=== PATIENT | female | born 2005 | race African-American/Black ===

== ENCOUNTER 2023-05-10 22:20 | Emergency (ER) | payer BC, SELFPAY ==
[2023-05-10] VITALS (9 sets, daily range): BP systolic 130–131; BP diastolic 82–93; PULSE 103–127; RESP 13–28; TEMP 36.7–36.9; O2SAT 100
--- NOTE | 2023-05-10 22:42 | ECG_ITS ---
Measurements Intervals [place] Rate: 127 P: 48 IN: 154 QRS: 19 QRSD: 76 T: 6 QT: 295 QTc: 430 Interpretive Statements SINUS TACHYCARDIA OTHERWISE NORMAL ELECTROCARDIOGRAM NO PREVIOUS ECG AVAILABLE FOR COMPARISON Electronically Signed On 05-11-2023 7:38:58 CONCRETE CURER by Dg Lara M.D.
--- NOTE | 2023-05-10 22:46 | ED.OVERDOSE ---
HPI - Overdose General Chief Complaint: Overdose <Mirna Herrera PA-C - Last Filed: 05/11/23 02:55> Stated Complaint: overdose on melatonin, and cold medicine <Mirna Herrera PA-C - Last Filed: 05/11/23 02:55> Time Seen by Provider: 05/10/23 22:31 <Mirna Herrera PA-C - Last Filed: 05/11/23 02:55> History of Present Illness HPI Narrative: 17-year-old female presents with her aunt and grandmother from home after a intentional overdose. The patient is anxious and crying on exam but provided the following history. She states that she tried to kill herself by taking sleep medications within an hour of arrival. Pt admits to taking an entire bottle of melatonin gummies (30 gummies, 6mg of melatonin each) and drank 90ccs of ZzzQuil nighttime sleep (50mg of Benadryl per 30mls.) Medications bottles present at bedside and reviewed. Pt endorses feeling sleepy and states that ?I just want Baldo to be here . Baldo is her boyfriend. Pt states no one wants her and Baldo to be together. She reports attempted suicide multiple times including an intentional Tylenol overdose within the past year. She denies visual or auditory hallucinations, HI. She denies alcohol or drug use. Denies chest pain, dyspnea, vision changes, focal numbness or weakness, n/v/d, abdominal pain, urinary complaints. Patient's aunt provides the following history. The patient lives at home with her and the patient's grandmother. The patient's boyfriend, Baldo, showed up to the house saying Marcos texted him saying she was going to kill herself. The aunt then went and found the patient getting out of the shower, dressed the patient and brought her to the ED. The grandmother said the patient left to get the cough medications at 9:30pm tonight, therefore took the medications some point after. Family endorses a formal dx of ADD, no other psychiatric diagnoses. She has never been admitted for inpatient psychiatry and has never been evacuated by a psychiatric despite reported multiple suicide attempts. <Mirna Herrera PA-C - Last Filed: 05/11/23 02:55> Related Data Allergies/Adverse Reactions: Allergies Allergy/AdvReac Type Severity Reaction Status Date / Time No Known Allergies Allergy Mild Verified 05/10/23 22:31 <Mirna Herrera PA-C - Last Filed: 05/11/23 02:55> Review of Systems Review of Systems: CONSTITUTIONAL: Denies fever, chills, or sweats. EYES: Denies visual changes, redness, or discharge. ENT: Denies rhinorrhea, congestion, sore throat, or otalgia. CARDIOVASCULAR: Denies chest pain, palpitations, or edema. RESPIRATORY: Denies cough or dyspnea. GASTROINTESTINAL: Denies abdominal pain, nausea, vomiting, or diarrhea. GENITOURINARY: Denies dysuria or hematuria. SKIN: Denies rash or itching. MUSCULOSKELETAL: Denies back pain, joint pain, or myalgia. NEUROLOGIC: Denies headache, numbness, or weakness. PSYCHIATRIC: See HPI <Mirna Herrera PA-C - Last Filed: 05/11/23 02:55> [facility] Social History Social History: Social History Second hand tobacco smoke exposure: No Substance use type: former substance user <Mirna Herrera PA-C - Last Filed: 05/11/23 02:55> Exam Narrative: GENERAL: Patient anxious, tachypneic and tearful. Patient is protecting her airway in speaking in hushed tones HEAD: Normocephalic, atraumatic. EYES: PERRLA and EOMI. Mydriasis bilaterally ENT: Nares clear, no rhinorrhea or epistaxis. Mucous membranes moist. NECK: Supple. CHEST: Clear to auscultation. No respiratory distress. HEART: Regular rate and rhythm. No murmur heard. Normal peripheral pulses. ABDOMEN: Soft, nontender, nondistended, normal active bowel sounds. EXTREMITIES: Normal range of motion. No edema. SKIN: Warm, dry, no rash. NEURO: No focal deficits. Alert and oriented x3 PSYCH: Tearful, depressed, anxious. Active SI. No HI. No reported hallucinations. Well kept. <
[2023-05-10 22:57] LABS: Basophils Percent Auto 0.3 % (0.2-1.2); Eosinophils Absolute Auto 0.3 K/mm3 (0-0.3); Eosinophils Percent Auto 3.6 % (0-4.4); Hematocrit 40.8 % (37.0-47.0); Hemoglobin 13.5 g/dL (12.0-15.0); Immature Granulocyte Absolute 0.02 K/mm3 (0.00-0.031); Immature Granulocyte Percent A 0.2 % (0-0.5); Lymphocytes Absolute Auto 2.85 K/mm3 (0.9-3.2); Lymphocytes Percent Auto 32.9 % (18.3-44.2); Mean Corpuscular HGB Conc 33.1 g/dl (32-36); Mean Corpuscular Hemoglobin 29.3 pg (26-34); Mean Corpuscular Volume 88.7 fl (80-100); Mean Platelet Volume 8.2 fl (7.4-10.4); Monocytes Absolute Auto 0.7 K/mm3 (0.1-0.6); Monocytes Percent Auto 8.2 % (2.6-8.5); Neutrophils Absolute Auto 4.7 K/mm3 (1.3-6.7); Neutrophils Percent Auto 54.8 % (45.5-73.1); Platelet Count Result 346 k/mm3 (150-375); Red Cell Distribution Width 12.1 % (11.5-14.5); White Blood Count 8.7 K/mm3 (4.5-10.0)
--- NOTE | 2023-05-10 23:04 | PC.NURSE ---
This RN spoke with Shanel at poison control to consult about pt intentional overdose. Shanel at poison control stated that she would recommend ordering a salicylate and tylenol level along with a UDS and UA. Shanel also stated the main symptoms pt could experience would be nausea, vomiting, diarrhea, drowsiness, ataxia, and/ or agitation. Shanel stated that she was subtoxic. EDp ITZEL Kaur [facility] this RN.
[2023-05-10 23:09] LABS: Alanine Aminotransferase 13 U/L (6-35); Albumin Level 4.7 g/dL (3.7-5.6); Alkaline Phosphatase 89 U/L (45-116); Anion Gap 8 mmol/L (8-16); Aspartate Amino Transferase 22 U/L (14-36); Bilirubin,Total 0.5 mg/dL (0.2-1.3); Blood Urea Nitrogen 12 mg/dL (8-21); Calcium 9.4 mg/dL (8.9-10.7); Carbon Dioxide 25 mmol/L (22-30); Chloride 107 mmol/L (98-107); Estimated CRCL calculation 109 ml/min; Estimated Glomerular Filt Rate > 60; Glucose 106 mg/dL (65-110); Potassium 4.1 mmol/L (3.4-5.0); Sodium 140 mmol/L (134-143)
[2023-05-10 23:10] LABS: Acetaminophen < 10 ug/mL (10-30); Ethanol < 10 mg/dL (<10); Salicylate < 1.0 mg/dL (2-20)
[2023-05-10 23:18] LABS: Appearance Urine Clear (Clear); Bilirubin Urine Negative (Negative); Blood Urine Negative (Negative); Color Urine Yellow (Yellow); Glucose Urine UA Negative (Negative); Ketones Urine Trace mg/dL (Negative); Leukocyte Esterase Ur Negative LEU/UL (Negative); Nitrate Urine Negative (Negative); Protein Urine Negative (Negative); Urobilinogen Urine 0.2 mg/dL (<2.0); pH Urine 5.5 (5.0-9.0)
[2023-05-10 23:33] LABS: Amphetamine Screen Urine Negative (Negative); Barbiturate Screen Urine Negative (Negative); Benzodiazepines Screen Urine Negative (Negative); Cannabinoid Screen Urine Negative (Negative); Cocaine Screen Urine Negative (Negative); Methadone Screen Urine Negative (Negative); Opiate Screen Urine Negative (Negative); Phencyclidine Screen Urine Negative (Negative)
[2023-05-10] MEDS: SODIUM CHLORIDE 0.9% IV 1,000 ML 999 ML IV CONT (23:43)
[2023-05-10 23:49] LABS: Specific Grav Ur 1.037 (1.001-1.035)
[2023-05-10 23:50] LABS: Add Urine Microscopic? NO; SARS-CoV-2 RNA PCR Negative (Negative)
[2023-05-11] VITALS (47 sets, daily range): BP systolic 97–130; BP diastolic 66–89; PULSE 71–117; RESP 13–21; TEMP 36.6; O2SAT 97–100
--- NOTE | 2023-05-11 01:04 | PC.NURSE ---
THis RN spoke with Shanel at poison control to give the pharmacist an update on pt condition.
--- NOTE | 2023-05-11 01:13 | PC.NURSE ---
This RN spoke with [facility] for pt to be evaluated. [facility] denied evaluation for pt. This RN contacted [facility].
--- NOTE | 2023-05-11 04:31 | PC.NURSE ---
This RN has called the CRISIS hotline every 15 minutes since 314 and the calls continue to go straight to voicemail. Multiple messages left. Will continue to call.
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
--- NOTE | 2023-05-11 07:54 | PC.NURSE ---
Pt [place] Reassessment no risk, due to recent suicide attempt and elopement risk sitter remains at bedside
== END 2023-05-11 16:07 ==
PROVIDERS: Physician Assistant; Emergency Provider Emergency Medicine
DX: T50.992A Poisoning by other drugs, medicaments and biological substances, intentional self-harm, initial encounter (principal); F98.8 Other specified behavioral and emotional disorders with onset usually occurring in childhood and adolescence; Z20.822 Contact with and (suspected) exposure to COVID-19
CPT/HCPCS: 36415; 80053; 80307; 81003; 81025; 84443; 85025; 87635; 93005; 96360; 99285; J7030